=== PATIENT | female | born 1960 | race Caucasian/White ===

== ENCOUNTER → 2017-03-20 | Outpatient (CLI) | payer BC ==
--- NOTE | 2017-03-20 08:14 | US ---
EXAMINATION TYPE: US liver DATE OF EXAM: 03/20/2017 COMPARISON: NONE CLINICAL HISTORY: R74.8 Elevated liver enzymes. no symptoms EXAM MEASUREMENTS: Liver Length: 15.0 cm Gallbladder Wall: 0.1 cm CBD: 0.5 cm Right Kidney: 9.3 x 5.0 x 4.2 cm Pancreas: tail obscured by bowel gas, otherwise wnl Liver: There is 10 x 8 x 8 mm oval hyperechoic focus right hepatic dome too small to further characte juan daniel. Suspect small hemangioma. Gallbladder: wnl Evidence for sonographic Mondragon's sign: no CBD: wnl Right Kidney: wnl IMPRESSION: No worrisome intrahepatic mass or intrahepatic ductal dilatation is seen. Nonspecific 1 c m hyperechoic focus right hepatic dome favors small hemangioma, consider ultrasound follow-up in 6-12 months time to ensure stability in size.
== END | disposition home or self-care (01) ==
LOC: RADUSWWP 07:32
PROVIDERS: ATTEND Family Medicine
DX: R93.2 Abnormal findings on diagnostic imaging of liver and biliary tract (principal); R74.8 Abnormal levels of other serum enzymes
CPT/HCPCS: 76705

== ENCOUNTER 2017-04-11 03:01 | Emergency (ER) | payer BC ==
[2017-04-11 03:26] VITALS: TEMP 97.7
[2017-04-11] MEDS ORDERED: ALBUTEROL NEBULIZED 2.5 MG/3 ML INHALATION STA ×2 (03:32→05:20)
[2017-04-11] MEDS ORDERED: predniSONE 20 MG TAB PO STA (03:32)
[2017-04-11 04:08] LABS: Basophils % (A) 1 %; CH 31.4; Eosinophils # (A) 0.6 k/uL (0-0.7); Eosinophils % (A) 8 %; HCT 40.5 % (34.0-46.0); HDW 2.33; HGB 14.4 gm/dL (11.4-16.0); Luc # (Auto) 0.22; Luc % (Auto) 3; Lymphocytes # (A) 1.7 k/uL (1.0-4.8); Lymphocytes % (A) 21 %; MCHC 35.5 g/dL (31.0-37.0); MCV 92.8 fL (80.0-100.0); Mean Platelet Volume 7.5; Monocytes # (A) 0.6 k/uL (0-1.0); Monocytes % (A) 7 %; Neutrophils # (A) 4.9 k/uL (1.3-7.7); Neutrophils % (A) 61 %; RBC 4.36 m/uL (3.80-5.40); RDW 13.9 % (11.5-15.5); WBC (Perox) 8.26
[2017-04-11 04:32] LABS: ALT 31 U/L (9-52); AST 23 U/L (14-36); Alkaline Phosphatase 96 U/L (38-126); Anion Gap 12 mmol/L; Blood Urea Nitrogen 12 mg/dL (7-17); Calcium 9.9 mg/dL (8.4-10.2); Carbon Dioxide 24 mmol/L (22-30); Chloride 99 mmol/L (98-107); Glucose 101 mg/dL (74-99); Magnesium 1.8 mg/dL (1.6-2.3); Non-African American GFR(MDRD) >60 (>60 ml/min/1.73 sqM); Potassium 4.4 mmol/L (3.5-5.1); Sodium 135 mmol/L (137-145); Total Bilirubin 0.2 mg/dL (0.2-1.3); Total Protein 6.9 g/dL (6.3-8.2)
--- NOTE | 2017-04-11 04:38 | XR ---
EXAM: XR Chest, 2 Views CLINICAL HISTORY: Reason: difficulty breathing TECHNIQUE: Frontal and lateral views of the chest. COMPARISON: No relevant prior studies available. FINDINGS: Lungs: Evidence of COPD with chronic interstitial lung changes. Minimal peribronchial cuffing is suspected, which can be seen in pulmonary edema versus inflammatory airways disease. Pleural space: Unremarkable. No pneumothorax. No evidence of large pleural effusion. Heart: Unremarkable. No cardiomegaly. Mediastinum: Unremarkable. Bones/joints: Degenerative changes involving the osseous structures. Osteopenia suggested. IMPRESSION: 1. Evidence of COPD with chronic interstitial lung changes. 2. Minimal peribronchial cuffing is suspected, which can be seen in pulmonary edema versus inflammatory airways disease. Correlate clinically.
[2017-04-11] MEDS ORDERED: RX INFO: IV CONTRAST WAS GIVEN 1 EACH MISC MISCELLANE PRN (05:20)
--- NOTE | 2017-04-11 07:01 | CT ---
EXAM: CT Angiography Chest With Intravenous Contrast CLINICAL HISTORY: Asthma with elevated d-dimer. TECHNIQUE: Axial computed tomographic angiography images of the chest with intravenous contrast using pulmonary embolism protocol. DLP is 211.80 mGy-cm. This CT exam was performed using one or more of the following dose reduction techniques: automated exposure control, adjustment of the mA and/or kV according to patient size, and/or use of iterative reconstruction technique. MIP reconstructed images were created and reviewed. COMPARISON: No relevant prior studies available. FINDINGS: Pulmonary arteries: Unremarkable. No pulmonary embolism. Aorta: No acute findings. No thoracic aortic aneurysm. Lungs: Mild bronchiectasis is suggested. Mild bronchial wall thickening may also be present, which may represent inflammatory airways disease. Tiny nodular opacities are seen in the medial left upper lobe and within the right middle lobe somewhat arranged in a tree-in-bud configuration raising concern for infectious versus inflammatory small airways disease. Focal area of ground-glass opacity seen in the periphery of the right upper lobe concerning for early pneumonia. Mild emphysematous changes are suggested. Dependent atelectasis involving both lower lobes. Pleural space: Unremarkable. No significant effusion. No pneumothorax. Heart: Unremarkable. No cardiomegaly. No significant pericardial effusion. No evidence of RV dysfunction. Bones/joints: No acute fracture. No dislocation. Soft tissues: Unremarkable. Lymph nodes: Mildly prominent mediastinal and bilateral hilar lymph nodes are seen, which are likely reactive. IMPRESSION: 1. Mild bronchiectasis. Mild bronchial wall thickening, which may represent inflammatory airways disease. 2. Tiny nodular opacities are seen in the medial left upper lobe and within the right middle lobe somewhat arranged in a tree-in-bud configuration raising concern for infectious versus inflammatory small airways disease. Attention on short-term interval follow-up CT of the chest is recommended after treatment to assure resolution. 3. Focal area of ground-glass opacity seen in the periphery of the right upper lobe concerning for early pneumonia. 4. No evidence of PE.
[2017-04-11] MEDS ORDERED: AZITHROMYCIN 500 MG TAB PO STA (07:21)
--- NOTE | 2017-04-11 07:22 | ED ---
SOB HPI - General Chief Complaint: Shortness of Breath Stated Complaint: SOB Time Seen by Provider: 04/11/17 03:20 Source: patient, family Mode of arrival: ambulatory Limitations: no limitations - History of Present Illness Initial Comments: This patient is a 56-year-old woman who comes in to be evaluated for shortness of breath that is been getting worse over about the past 1 week. The patient notes that she had been started on Lipitor and thought that it might be related to that so she stopped the medication but wasn't feeling much better. On further questioning reveals that the patient had developed some sinus congestion as well, and that she is having nonproductive cough. In addition patient has been feeling some pressure on her chest for about the past week as well. She denies anginal type symptoms, including no diaphoresis, nausea or vomiting, lightheadedness, palpitations or syncope. MD Complaint: shortness of breath, cough, chest pain Onset/Timin -: week(s) Severity: mild Quality: other (Pressure) Consistency: constant Improves With: nothing Worsens With: nothing Known History Of: COPD Context: recent URI Associated Symptoms: chest pain, cough - Related Data Previous Rx's Medication Instructions Recorded Albuterol Inhaler [Ventolin Hfa 1 - 2 puff INHALATION Q6HR PRN #1 04/11/17 Inhaler] inhaler Azithromycin [Zithromax Z-pack] 250 mg PO DIRECTED #6 tab 04/11/17 predniSONE 60 mg PO DAILY #30 tab 04/11/17 Allergies Allergy/AdvReac Type Severity Reaction Status Date / Time No Known Allergies Allergy Verified 04/11/17 08:16 Review of Systems ROS Statement: Those systems with pertinent positive or pertinent negative responses have been documented in the HPI. ROS Other: All systems not noted in ROS Statement are negative. Constitutional: Denies: fever, chills, weakness ENT: Reports: congestion Respiratory: Reports: as per HPI, cough, dyspnea. Denies: hemoptysis Cardiovascular: Reports: as per HPI, chest pain. Denies: palpitations, edema, syncope Gastrointestinal: Denies: abdominal pain, vomiting, diarrhea, melena, hematochezia Genitourinary: Denies: dysuria, hematuria Musculoskeletal: Denies: back pain Skin: Denies: rash Neurological: Denies: headache, weakness, numbness Past Medical History Past Medical History: Asthma, Hyperlipidemia, Hypertension History of Any Multi-Drug Resistant Organisms: None Reported Past Surgical History: No Surgical Hx Reported Past Psychological History: No Psychological Hx Reported Smoking Status: Current every day smoker Past Alcohol Use History: None Reported Past Drug Use History: None Reported General Exam Limitations: no limitations General appearance: alert, in no apparent distress Head exam: Present: atraumatic, normocephalic Eye exam: Present: normal appearance. Absent: scleral icterus, conjunctival injection ENT exam: Present: normal oropharynx Neck exam: Present: normal inspection, full ROM Respiratory exam: Present: wheezes. Absent: respiratory distress, rales, rhonchi, stridor, chest wall tenderness Cardiovascular Exam: Present: regular rate, normal rhythm, normal heart sounds. Absent: systolic murmur, diastolic murmur, rubs, gallop GI/Abdominal exam: Present: soft. Absent: distended, tenderness, guarding, rebound, mass Extremities exam: Present: normal inspection, normal capillary refill. Absent: pedal edema, calf tenderness Back exam: Present: normal inspection. Absent: CVA tenderness (R), CVA tenderness (L) Neurological exam: Present: alert Skin exam: Present: warm, dry, intact, normal color. Absent: rash Course Vital Signs 04/11/17 04/11/17 04/11/17 03:21 03:26 03:44 Temperature 97.7 F Pulse Rate 97 80 Respiratory 20 Rate Blood Pressure 169/89 O2 Sat by Pulse 89 L 94 L Oximetry 04/11/17 04/11/17 04/11/17 04:00 05:06 05:50 Temperature Pulse Rate 88 77 81 Respiratory 20 Rate Blood Pressure 133/73 O2 Sat by Pulse 93 L Oximetry 04/11/17 04/11/17 06:03 08:25 Temperature 97.7 F Pulse Rate 84 89 Respiratory 18 Rate Blood Pressure 133/77 O2 Sat by Pulse 90 L Oximetry Medical Decision Making - Medical Decision Making Patient is a 56-year-old woman who does have some wheezing and cough, consistent with COPD. She is feeling a little better following treatment here for that. On her workup she had a mild elevation of the d-dimer and therefore sent for CT that shows suspected early pneumonia. Patient started on antibiotics and offered admission here but she states she would try an outpatient course of antibiotics instead. Discussed appropriate follow-up and also return parameters. Patient is stable for outpatient course of antibiotics. - Lab Data Result diagrams: 04/11/17 03:43 04/11/17 03:43 Lab Results 04/11/17 04/11/17 04/11/17 Range/Units 03:43 03:43 03:43 WBC 8.0 (3.8-10.6) k/uL RBC 4.36 (3.80-5.40) m/uL Hgb 14.4 (11.4-16.0) gm/dL Hct 40.5 (34.0-46.0) % MCV 92.8 (80.0-100.0) fL MCH 33.0 (25.0-35.0) pg MCHC 35.5 (31.0-37.0) g/dL RDW 13.9 (11.5-15.5) % Plt Count 276 (150-450) k/uL Neutrophils % 61 % Lymphocytes % 21 % Monocytes % 7 % Eosinophils % 8 % Basophils % 1 % Neutrophils # 4.9 (1.3-7.7) k/uL Lymphocytes # 1.7 (1.0-4.8) k/uL Monocytes # 0.6 (0-1.0) k/uL Eosinophils # 0.6 (0-0.7) k/uL Basophils # 0.0 (0-0.2) k/uL D-Dimer 0.65 H (<0.60) mg/L FEU Sodium 135 L (137-145) mmol/L Potassium 4.4 (3.5-5.1) mmol/L Chloride 99 (98-107) mmol/L Carbon Dioxide 24 (22-30) mmol/L Anion Gap 12 mmol/L BUN 12 (7-17) mg/dL Creatinine 0.70 (0.52-1.04) mg/dL Est GFR (MDRD) Af Amer >60 (>60 ml/min/1.73 sqM) Est GFR (MDRD) Non-Af >60 (>60 ml/min/1.73 sqM) Glucose 101 H (74-99) mg/dL Calcium 9.9 (8.4-10.2) mg/dL Magnesium 1.8 (1.6-2.3) mg/dL Total Bilirubin 0.2 (0.2-1.3) mg/dL AST 23 (14-36) U/L ALT 31 (9-52) U/L Alkaline Phosphatase 96 (38-126) U/L Troponin I (0.000-0.034) ng/mL NT-Pro-B Natriuret Pep pg/mL Total Protein 6.9 (6.3-8.2) g/dL Albumin 4.2 (3.5-5.0) g/dL 04/11/17 04/11/17 Range/Units 03:43 03:43 WBC (3.8-10.6) k/uL RBC (3.80-5.40) m/uL Hgb (11.4-16.0) gm/dL Hct (34.0-46.0) % MCV (80.0-100.0) fL MCH (25.0-35.0) pg MCHC (31.0-37.0) g/dL RDW (11.5-15.5) % Plt Count (150-450) k/uL Neutrophils % % Lymphocytes % % Monocytes % % Eosinophils % % Basophils % % Neutrophils # (1.3-7.7) k/uL Lymphocytes # (1.0-4.8) k/uL Monocytes # (0-1.0) k/uL Eosinophils # (0-0.7) k/uL Basophils # (0-0.2) k/uL D-Dimer (<0.60) mg/L FEU Sodium (137-145) mmol/L Potassium (3.5-5.1) mmol/L Chloride (98-107) mmol/L Carbon Dioxide (22-30) mmol/L Anion Gap mmol/L BUN (7-17) mg/dL Creatinine (0.52-1.04) mg/dL Est GFR (MDRD) Af Amer (>60 ml/min/1.73 sqM) Est GFR (MDRD) Non-Af (>60 ml/min/1.73 sqM) Glucose (74-99) mg/dL Calcium (8.4-10.2) mg/dL Magnesium (1.6-2.3) mg/dL Total Bilirubin (0.2-1.3) mg/dL AST (14-36) U/L ALT (9-52) U/L Alkaline Phosphatase (38-126) U/L Troponin I <0.012 (0.000-0.034) ng/mL NT-Pro-B Natriuret Pep 42 pg/mL Total Protein (6.3-8.2) g/dL Albumin (3.5-5.0) g/dL - EKG Data -: EKG Interpreted by Me EKG shows normal: sinus rhythm, axis (Normal), intervals (Normal), ST-T waves ( Normal) Rate: normal (Rate 89 bpm) Disposition Clinical Impression: COPD exacerbation, Pneumonia Disposition: HOME SELF-CARE Condition: Fair Instructions: COPD (Chronic Obstructive Pulmonary Disease) (ED) Prescriptions: Albuterol Inhaler [Ventolin Hfa Inhaler] 1 - 2 puff INHALATION Q6HR PRN #1 inhaler PRN Reason: Wheezing Azithromycin [Zithromax Z-pack] 250 mg PO DIRECTED #6 tab predniSONE 60 mg PO DAILY #30 tab Referrals: Guevara Bradley MD [Primary Care Provider] - 1-2 days
[2017-04-11 08:26] VITALS: BP 133/77; PULSE 89; RESP 18
--- NOTE | 2017-04-15 08:23 | CDI ---
Documentation Clarification OP Dear Jose Coelho Please do addendum to ED report for missing HPI and Physical examination. Thank you, Lauren Lopez Dials Supervisor If you have any questions, please contact Laborer Operator at [phone] [facility]
== END 2017-04-11 08:26 | disposition home or self-care (01) ==
LOC: EC 03:01
DX: J44.1 Chronic obstructive pulmonary disease with (acute) exacerbation (principal); J18.9 Pneumonia, unspecified organism; J45.909 Unspecified asthma, uncomplicated; E78.5 Hyperlipidemia, unspecified; F17.200 Nicotine dependence, unspecified, uncomplicated
CPT/HCPCS: 99285; 96365; 36415; 94640 ×2; 93005; 85379; 83880; 80053; 83735; 84484; 85025; 71020; 71275; Q9967; J0696; J7512

== ENCOUNTER → 2017-07-16 | Outpatient (CLI) | payer BC ==
--- NOTE | 2017-07-16 08:51 | CT ---
EXAMINATION TYPE: CT chest wo con DATE OF EXAM: 07/16/2017 COMPARISON: 04/11/2017 HISTORY: Solitary pulmonary nodule CT DLP: 463 mGycm. Automated Exposure Control for Dose Reduction was Utilized. TECHNIQUE: CT scan of the thorax is performed without IV contrast. FINDINGS: LUNGS: The previously seen tree-in-bud opacity within the left upper lobe and right middle lobe has e ntirely resolved from the prior. The previously seen bronchiectasis is less conspicuous and there is no peribronchial cuffing. There is also near complete resolution of previously seen groundglass opaci ty of the periphery of the right upper lobe with a residual 2 mm nodule on series 4 image 30. There i s an unchanged 5 mm solid pulmonary nodule within the right lower lobe on series 4 image 41 as well a s a subsolid 3 mm pulmonary nodule within the lingula on series 4 image 40, a subsolid 3 mm pulmonary nodule on series 4 image 27, and a subsolid 4 mm pulmonary nodule on series 4 image 36. There is valerie kground mild centrilobular emphysematous changes. There is no pleural effusion or pneumothorax seen. The tracheobronchial tree is patent. MEDIASTINUM: Lack of IV contrast is noted to limit evaluation for mediastinal and especially hilar ad enopathy. There are no definitive greater than 1 cm hilar or mediastinal lymph nodes. No cardiomega ly or pericardial effusion is seen. Moderate coronary artery calcifications are seen. OTHER: Small hiatal hernia is incidentally noted. There is mild dextroscoliotic curvature of the thor acic spine. Multilevel mild degenerative changes of the thoracic spine are noted. IMPRESSION: 1. Multiple bilateral subsolid and solid pulmonary nodules. Per the Fleischner Society criteria given their multiplicity, size, and subsolid composition follow-up CT in 3-6 months is recommended. If unc hanged CT should be considered at 2 and 4 years. 2. Near complete resolution the previously seen groundglass right upper lobe opacity and complete res olution of the previously seen left-sided tree-in-bud opacity. 3. Small hiatal hernia. 4. Moderate coronary artery calcifications, marker for coronary artery disease.
== END | disposition home or self-care (01) ==
LOC: RADCTMAIN 07:56
PROVIDERS: ATTEND Internal Medicine Sleep Medicine
DX: R91.8 Other nonspecific abnormal finding of lung field (principal); I25.10 Atherosclerotic heart disease of native coronary artery without angina pectoris
CPT/HCPCS: 71250

== ENCOUNTER → 2018-01-24 | Outpatient (CLI) | payer BC ==
--- NOTE | 2018-01-24 10:24 | CT ---
EXAMINATION TYPE: CT chest wo con DATE OF EXAM: 01/24/2018 COMPARISON: 07/16/2017 HISTORY: Follow up nodule CT DLP: 417 mGycm. Automated Exposure Control for Dose Reduction was Utilized. TECHNIQUE: CT scan of the thorax is performed without IV contrast. FINDINGS: LUNGS: There is a new tree-in-bud opacity of the medial anterior right upper lobe on series 4 image 1 5. The previously seen 2 mm nodule within the right upper lobe anteriorly is barely visualized and no w appears as linear scarring. This is seen on series 4 image 31. Right lower lobe 4 to 5 mm solid pul monary nodule on series 4 image 42 appears unchanged given differences in slice selection. Linear annette gular 2 mm pulmonary nodule on image 40 is similar to the prior. There is stability of the 4 mm pulmo nary nodule that is subsequent on series 4 image 36 in the left lower lobe in the previously seen lef t apical pulmonary nodules barely visible on image 27 measuring 3 mm. This may be attributable to dif ferences in slice selection. There is a retrospectively unchanged 3 mm pulmonary nodule that is solid on series 4 image 33 medially within the right lower lobe. No new pulmonary nodules identified. Minimal bibasilar subsegmental dependent atelectasis is present. There is no pleural effusion or pneu mothorax seen. The tracheobronchial tree is patent. MEDIASTINUM: Lack of IV contrast is noted to limit evaluation for mediastinal and especially hilar ad enopathy. There are no definitive greater than 1 cm hilar or mediastinal lymph nodes. No cardiomega ly or pericardial effusion is seen. Again there are moderate coronary artery calcifications, marker o f coronary artery disease. Small hiatal hernia is also again appreciated. OTHER: Mild multilevel degenerative changes of the thoracic spine are noted. IMPRESSION: 1. New left apical tree-in-bud opacity typically related to infectious or inflammatory small airway d isease. 2. Stability of the multiple bilateral pulmonary nodules. Follow-up CT could be performed in one year to establish long-term stability.
== END | disposition home or self-care (01) ==
LOC: RADCTMAIN 08:56
PROVIDERS: ATTEND Internal Medicine Sleep Medicine
DX: R91.8 Other nonspecific abnormal finding of lung field (principal)
CPT/HCPCS: 71250

== ENCOUNTER 2018-02-04 07:30 | Day surgery (SDC) | payer BC ==
[2018-02-03 10:00] VITALS: BMI 27.4
[~2018-02-04 07:30] MED LIST: LACTATED RINGERS 1,000 ML IV SCH; LIDOCAINE 1% 20 ML VIAL (10MG/ML) FOR IV START INTRADERMA PRN; MIDAZOLAM 2 MG/2 ML VIAL IV PRN
[2018-02-04 07:54] VITALS: TEMP 98.3
[2018-02-04] MEDS ORDERED: fentaNYL (PF) 50 MCG/ML 2 ML AMP ONE (08:40)
[2018-02-04] MEDS ORDERED: MIDAZOLAM 2 MG/2 ML VIAL ONE (08:40)
[2018-02-04] MEDS ORDERED: KETAMINE 10 MG/ML 20 ML VIAL ONE (08:40)
[2018-02-04] MEDS ORDERED: PROPOFOL 10 MG/ML 20 ML VIAL IV ONE (08:40)
[2018-02-04] MEDS ORDERED: LIDOCAINE 1% INJ 10MG/ML (20 ML MDV) ONE (08:40)
[2018-02-04] MEDS ORDERED: GLYCOPYRROLATE 0.2 MG/ML 2 ML VIAL ONE (08:40)
[2018-02-04] MEDS ORDERED: LIDOCAINE 2% INJ 20 MG/ML INTRATRACH ONE (09:03)
[2018-02-04 09:53] VITALS: BP 127/78; PULSE 72
--- NOTE | 2018-02-04 09:56 | P.PCN ---
Date of Procedure: 02/04/18 Preoperative Diagnosis: Recurrent pneumonia, cough shortness of breath Postoperative Diagnosis: As above Procedure(s) Performed: #1 bronchoscopy, 2 bronchoalveolar lavage of left upper lobe left lingula lobe and right lower lobe Surgeon: Jewel Ali Condition: stable Disposition: same day Indications for Procedure: As above Operative Findings: As below Description of Procedure: Patient prepared and draped in a usual fashion informed consent obtained from the patient fiberoptic bronchoscope was passed through the right nares the vocal cords were normal structure and function tip of the scope was passed beyond the vocal cords into the trachea which was normal in appearance right upper lobe right middle lobe and right lower lobe were inspected BAL was performed from the right lower lobe tolerated very well tip of the scope was taken on the left side more diffuse edema or erythema in and pearly cadet mucous plugs were present on the left side the mucosa was inflamed and easy to bleed and patch, BAL was performed from the left upper lobe as well as lingula lobe patient tolerated the procedure well no complication noted pulmonary toilet and suctioning cleaning of the left lung was performed afterwards patient tolerated the procedure well no complication noted
== END 2018-02-04 10:10 | disposition home or self-care (01) ==
LOC: ORWHC2ENDO 07:30
PROVIDERS: ATTEND Internal Medicine Sleep Medicine
DX: J18.9 Pneumonia, unspecified organism (principal); R91.8 Other nonspecific abnormal finding of lung field; I10 Essential (primary) hypertension; J45.909 Unspecified asthma, uncomplicated; Z87.891 Personal history of nicotine dependence
CPT/HCPCS: 87798 ×3; 87496; 87498; 87529; 88108; 88305; 87252; 87502; 87634; 87070; 87205; 87116; 87102; 87206; 31624; J2001 ×2; J2250; J3010; J2704; 31645; 87541

== ENCOUNTER → 2018-08-01 | Outpatient (CLI) | payer OTHER ==
--- NOTE | 2018-08-01 09:09 | MR ---
EXAMINATION TYPE: MR lumbar spine wo con DATE OF EXAM: 08/01/2018 COMPARISON: HISTORY: Intervertebral disc degeneration, lumbar CONTRAST: 0 mL intravenous . TECHNIQUE: Multiplanar, multisequence images of the lumbar spine were acquired. FINDINGS: L5-S1: No significant disc bulge or disc herniation. No spinal canal stenosis. No foraminal stenosi s. Mild facet hypertrophy is present. Disc desiccation is present. L4-L5: No significant disc bulge or disc herniation. No spinal canal stenosis. No foraminal stenosi s. There is moderate left and mild right foraminal narrowing. Correlate with left L5 radicular sympto ms. Disc desiccation is present. L3-L4: Mild disc bulging is anterior thecal sac flattening. No AP spinal canal stenosis is present. There is moderate to severe right foraminal stenosis. Some contact with disc bulging with the exiting nerve root on the right may be present. Correlate with right L4 radicular symptoms. Disc desiccation is present. L2-L3: No significant disc bulge or disc herniation. No spinal canal stenosis. No foraminal stenosi s. Disc desiccation is present. L1-L2: No significant disc bulge or disc herniation. No spinal canal stenosis. No foraminal stenosi s. Neural foramen are patent.. T12-L1: No significant disc bulge or disc herniation. No spinal canal stenosis. No foraminal stenos is. IMPRESSION: 1. Mild disc bulging contributing to moderate to severe foraminal stenosis in the lower lumbar spine. Correlate specifically for left L5 and right L4 radicular symptoms.
== END | disposition home or self-care (01) ==
LOC: RADMRIMAIN 07:33
PROVIDERS: ATTEND Internal Medicine Rheumatology
DX: M48.061 Spinal stenosis, lumbar region without neurogenic claudication (principal); M51.26 Other intervertebral disc displacement, lumbar region
CPT/HCPCS: 72148

== ENCOUNTER 2018-10-03 20:28 | Emergency (ER) | payer BC, OTHER ==
[2018-10-03] MEDS ORDERED: IPRATROPIUM-ALBUTEROL 3 ML NEB INHALATION STA (20:54)
[2018-10-03] MEDS ORDERED: MORPHINE SULFATE 4 MG/ML SYRINGE IM STA (20:55)
--- NOTE | 2018-10-03 21:17 | XR ---
EXAMINATION TYPE: XR chest 2V DATE OF EXAM: 10/03/2018 COMPARISON: 04/11/2017 HISTORY: Left-sided chest pain TECHNIQUE: Frontal and lateral views of the chest are obtained. FINDINGS: Heart and mediastinum are normal. Lungs are clear of infiltrate. There is no pleural effus ion. There are no hilar masses. Bony thorax is intact. IMPRESSION: No active cardiopulmonary disease. Normal heart. No change.
--- NOTE | 2018-10-03 21:18 | XR ---
EXAMINATION TYPE: XR ribs LT DATE OF EXAM: 10/03/2018 COMPARISON: NONE HISTORY: Left rib pain TECHNIQUE: 4 views FINDINGS: The left ribs appear intact. I see no pleural effusion or pneumothorax. Left lung is clear of infiltrate. IMPRESSION: Negative left rib exam.
--- NOTE | 2018-10-03 21:47 | ED ---
General Adult HPI - General Source: patient, RN notes reviewed Mode of arrival: ambulatory Limitations: no limitations <Ricky Moses P - Last Filed: 10/03/18 22:28> <Ngoc Ingram P - Last Filed: 10/04/18 06:37> - General Chief complaint: Back Pain/Injury Stated complaint: Back Pain Time Seen by Provider: 10/03/18 20:38 - History of Present Illness Initial comments: 58-year-old female presents to the emergency department for a chief complaint of left sided back pain. Patient states she has had a cough for the past week. Patient states this is productive in nature. Patient states yesterday she coughed and felt a pop in her ribs. Patient states it has been very painful since that time. Patient states that aggravating factors include movement. States alleviating factors include laying down still. She denies any shortness of breath. Patient states she often has a cough due to history of emphysema. She states this cold seems to be improving. Denies fevers or chills. Patient has no other complaints at this time including shortness of breath, chest pain, abdominal pain, nausea or vomiting, headache, or visual changes. (Ricky Moses) - Related Data Home Medications Medication Instructions Recorded Confirmed Albuterol Inhaler [Ventolin Hfa 2 puff INHALATION RT-QID PRN 02/03/18 10/03/18 Inhaler] Folic Acid 1 mg PO DAILY 02/03/18 10/03/18 Gabapentin [Neurontin] 400 mg PO TID PRN 02/03/18 10/03/18 Lisinopril [Zestril] 10 mg PO DAILY 02/03/18 10/03/18 Methotrexate Sodium [Methotrexate] 25 mg PO MO 10/03/18 10/03/18 Previous Rx's Medication Instructions Recorded Azithromycin [Zithromax Z-pack] 250 mg PO DIRECTED #6 tab 10/03/18 HYDROcodone/APAP 5-325MG [[place] 1 tab PO Q6HR PRN #10 tab 10/03/18 5-325] Lidocaine 5% Patch [Lidoderm 5% 1 patch TOPICAL DAILY #3 patch 10/03/18 Patch] predniSONE 50 mg PO DAILY #5 tablet 10/03/18 Allergies Allergy/AdvReac Type Severity Reaction Status Date / Time No Known Allergies Allergy Verified 10/03/18 21:29 Review of Systems ROS Other: All systems not noted in ROS Statement are negative. <Ricky Moses P - Last Filed: 10/03/18 22:28> ROS Other: All systems not noted in ROS Statement are negative. <Ngoc Ingram P - Last Filed: 10/04/18 06:37> ROS Statement: Those systems with pertinent positive or pertinent negative responses have been documented in the HPI. Past Medical History Past Medical History: Asthma, COPD, Hyperlipidemia, Hypertension, Pneumonia, Rheumatoid Arthritis (RA) History of Any Multi-Drug Resistant Organisms: None Reported Past Surgical History: Section, Tonsillectomy Past Anesthesia/Blood Transfusion Reactions: No Reported Reaction Past Psychological History: No Psychological Hx Reported Smoking Status: Former smoker Past Alcohol Use History: Occasional Past Drug Use History: None Reported - Past Family History Mother Family Medical History: No Reported History <Ricky Moses P - Last Filed: 10/03/18 22:28> General Exam Limitations: no limitations General appearance: alert, in no apparent distress Head exam: Present: atraumatic, normocephalic, normal inspection Eye exam: Present: normal appearance, PERRL, EOMI. Absent: scleral icterus, conjunctival injection, periorbital swelling ENT exam: Present: normal exam, mucous membranes moist Neck exam: Present: normal inspection, full ROM. Absent: tenderness, meningismus, lymphadenopathy Respiratory exam: Present: wheezes (minimal wheezing noted), chest wall tenderness (left sided posterior tenderness around T10-11). Absent: respiratory distress, rales, rhonchi, stridor Cardiovascular Exam: Present: regular rate, normal rhythm, normal heart sounds. Absent: systolic murmur, diastolic murmur, rubs, gallop, clicks GI/Abdominal exam: Present: soft, normal bowel sounds. Absent: distended, tenderness, guarding, rebound, rigid Neurological exam: Present: alert, oriented X3, CN II-XII intact Psychiatric exam: Present: normal affect, normal mood <Ricky Moses P - Last Filed: 10/03/18 22:28> Course Vital Signs 10/03/18 10/03/18 10/03/18 20:32 21:31 21:39 Temperature 98.2 F Pulse Rate 81 82 84 Respiratory 18 Rate Blood Pressure 142/75 O2 Sat by Pulse 97 Oximetry 10/03/18 22:30 Temperature 97.7 F Pulse Rate 78 Respiratory 20 Rate Blood Pressure 139/79 O2 Sat by Pulse 97 Oximetry Medical Decision Making <Ricky Moses P - Last Filed: 10/03/18 22:28> <Ngoc Ingram P - Last Filed: 10/04/18 06:37> - Medical Decision Making 58-year-old female presents to the emergency department for chief complaint of left-sided mid back pain 2 days. Patient states she felt a pop when she was coughing as she has had a productive cough for the past week. States this is worse with movement and better when resting. Patient denies any chest pain or abdominal pain. No neck pain. Vitals are stable, patient is 97% on room air. Pulse is 81 and respirations are 18. Patient is not in any respiratory distress. On exam patient does have some mild wheezing present. Patient does have reproducible pain noted to the mid left side of the back. Rib x-ray is negative. Chest x-ray shows no active cardiopulmonary disease. Patient likely has a contusion of the ribs or possible occult fracture. Patient was given breathing treatment and in sinus primary. She was given 4 mg of morphine for pain. Patient will be given a prescription for [place] as well as azithromycin and prednisone for her cough. She was also given a lidocaine patch as well as a prescription. She will follow up with primary care in 1-2 days or return here if she has any worsening symptoms. (Ricky Moses) I was available for consultation in the emergency department. The history and physical exam were done by the midlevel provider. I was consulted for this patient's care. I reviewed the case with the midlevel provider and based on their presentation of the patient, I agree with the assessment, medical decision making and plan of care as documented. (Ngoc Ingram) Disposition Is patient prescribed a controlled substance at d/c from ED?: No Time of Disposition: 22:21 <Ricky Moses P - Last Filed: 10/03/18 22:28> <Ngoc Ingram P - Last Filed: 10/04/18 06:37> Clinical Impression: Rib pain on left side Disposition: HOME SELF-CARE Condition: Good Instructions (If sedation given, give patient instructions): Rib Fracture (ED) Additional Instructions: Please take [place] for pain. Please do not drive or operate machinery when taking [place]. Please use lidocaine patch. He may apply this for 12 hours and then take it off for 12 hours before applying another patch. Please take azithromycin as directed as well as prednisone. Continue to use your nebulizer at home. Follow-up with primary care in 1-2 days. Return to the emergency department if you have any worsening symptoms. Prescriptions: Lidocaine 5% Patch [Lidoderm 5% Patch] 1 patch TOPICAL DAILY #3 patch HYDROcodone/APAP 5-325MG [[place] 5-325] 1 tab PO Q6HR PRN #10 tab PRN Reason: Pain predniSONE 50 mg PO DAILY #5 tablet Azithromycin [Zithromax Z-pack] 250 mg PO DIRECTED #6 tab Referrals: Guevraa Bradley MD [Primary Care Provider] - 1-2 days
[2018-10-03] MEDS ORDERED: KETOROLAC 30 MG/ML 1 ML VIAL IM STA (22:01)
[2018-10-03] MEDS ORDERED: LIDOCAINE 5% PATCH TOPICAL STA (22:01)
[2018-10-03 22:31] VITALS: BP 139/79; PULSE 78; RESP 20; TEMP 97.7
== END 2018-10-03 22:31 | disposition home or self-care (01) ==
LOC: EC 20:28
DX: R07.81 Pleurodynia (principal); M54.9 Dorsalgia, unspecified; R05 Cough; J43.9 Emphysema, unspecified; I10 Essential (primary) hypertension; M06.9 Rheumatoid arthritis, unspecified; Z79.899 Other long term (current) drug therapy; Z87.891 Personal history of nicotine dependence
CPT/HCPCS: 94640; 71100; 71046; 99283; 96372 ×2; J2270; J1885

== ENCOUNTER → 2020-12-15 | Outpatient (CLI) | payer OTHER ==
--- NOTE | 2020-12-15 13:02 | CTL ---
EXAMINATION TYPE: CT Low Dose Lung DATE OF EXAM ORDERED: 12/15/2020 HISTORY: 60-year-old female Personal history of tobacco use. Lung cancer screening CT DLP: [address] CTDI: 2.22 mGy Automated exposure control for dose reduction was used. SCREENING VISIT: Baseline COMPARISON: 01/24/2018 TECHNIQUE: Low dose computed tomography scan was performed through the chest with coronal and sagitta l reconstructions. Additional coronal MIP reconstruction was generated. CT DIAGNOSTIC QUALITY: Satisfactory FINDINGS: Heart normal size without pericardial effusion. LAD coronary artery calcifications. Aorta normal caliber with conventional arch vessel branching anatomy. No thoracic lymphadenopathy by CT size criteria. Minimal biapical pleural parenchymal scarring. Uyhu-az-tvftpaat diffuse bronchial wall thickening. 5 mm peripheral right lower lobe pulmonary nodule, axial image 178 is unchanged. 4 mm medial right lower lobe pulmonary nodule, axial image 146 is unchanged. 4 mm left lower lobe pulmonary nodule, axial image 158 is unchanged. No new suspicious pulmonary nodules. Patchy and interstitial changes inferior lingula and medial basilar right middle lobe slightly increa sed. Small hiatal hernia. Visualized upper abdomen otherwise shows no gross abnormal. Bones: Dextroconvex curvature of the third thoracic spine. IMPRESSION: 1. LungRADS 2, benign. A few stable pulmonary nodules measuring up to 5 mm. 2. Mild to moderate diffuse bronchial wall thickening suggests bronchitis or chronic asthma. 3. Some interstitial and patchy changes medial basilar right middle lobe and inferior lingula as slig htly increased. This is nonspecific but may represent sequela of indolent MACI infection. CT LUNG RAD AND CT CHEST RECOMMENDATION: Lung-Rad 2 Benign Appearance or Behavior: Continue annual sc reening with LDCT in 12 months. Recommend smoking cessation.
== END | disposition home or self-care (01) ==
LOC: RADCTMAIN 09:02
PROVIDERS: ATTEND Internal Medicine Sleep Medicine
DX: Z12.2 Encounter for screening for malignant neoplasm of respiratory organs (principal); R91.8 Other nonspecific abnormal finding of lung field; Z87.891 Personal history of nicotine dependence
CPT/HCPCS: 71271

== ENCOUNTER → 2020-12-15 | Outpatient (CLI) | payer OTHER ==
--- NOTE | 2020-12-19 08:56 | MM ---
Reason for exam: screening (asymptomatic). Last mammogram was performed 11 years and 2 months ago. History: Patient is postmenopausal. Physical Findings: A clinical breast exam by your physician is recommended on an annual basis and results should be correlated with mammographic findings. MG Screening Mammo w CAD Bilateral CC and MLO view(s) were taken. Prior study comparison: September 30, 2009, bilateral digital screening mammogram. March 20, 2002, bilateral screening mammogram. There are scattered fibroglandular densities. Focal asymmetry right upper MLO view. This finding is changed when compared with previous exams. ASSESSMENT: Incomplete: need additional imaging evaluation, BI-RAD 0 RECOMMENDATION: Special view mammogram of the right breast. If lesion persists on supplemental views, image directed ultrasound is recommended. [facility] will attempt to contact patient to return for supplemental views and ultrasound if indicated.
== END | disposition home or self-care (01) ==
LOC: RADMAMWWP 09:24
PROVIDERS: ATTEND Family Medicine
DX: Z12.31 Encounter for screening mammogram for malignant neoplasm of breast (principal); Z78.0 Asymptomatic menopausal state
CPT/HCPCS: 77067

== ENCOUNTER → 2020-12-29 | Outpatient (CLI) | payer OTHER ==
--- NOTE | 2020-12-29 12:11 | MM ---
Reason for exam: additional evaluation requested from abnormal screening. Last mammogram was performed less than 1 month ago. History: Patient is postmenopausal. Physical Findings: Nurse did not find any significant physical abnormalities on exam. MG Work Up Mamm w CAD RT LM and spot compression MLO view(s) were taken of the right breast. Prior study comparison: December 15, 2020, bilateral MG screening mammo w CAD. September 30, 2009, bilateral digital screening mammogram. Right axillary tail density on MLO/true lateral is covered by mole marker for skin lesion. These results were verbally communicated with the patient and result sheet given to the patient on 12/29/20. ASSESSMENT: Benign, BI-RAD 2 RECOMMENDATION: Return to routine screening mammogram schedule for both breasts.
== END | disposition home or self-care (01) ==
LOC: RADMAMWWP 10:12
PROVIDERS: ATTEND Family Medicine
DX: R92.8 Other abnormal and inconclusive findings on diagnostic imaging of breast (principal); Z78.0 Asymptomatic menopausal state
CPT/HCPCS: 77065

== ENCOUNTER → 2022-05-02 | Outpatient (CLI) | payer OTHER ==
[2022-05-02 11:36] LABS: ABG Base Excess 1.9 mmol/L; ABG HCO3 27 mmol/L (21-25); ABG Oxygen Saturation 92.5 % (94-97); ABG PCO2 47 mmHg (35-45); ABG PH 7.37 (7.35-7.45); ABG PO2 64 mmHg (83-108); ABG TCO2 29 mmol/L (19-24); Allen Test Performed? Yes
== END | disposition home or self-care (01) ==
LOC: LABWHC1 10:57
PROVIDERS: ATTEND Internal Medicine Critical Care Medicine
DX: J44.9 Chronic obstructive pulmonary disease, unspecified (principal)
CPT/HCPCS: 36600; 82805

== ENCOUNTER → 2022-11-29 | Outpatient (CLI) | payer OTHER ==
--- NOTE | 2022-11-30 12:42 | CA ---
Transthoracic Echo Report Name: Katie Grant Age: 62 Gender: F : 1960 Exam Date: 11/29/2022 12:52 Exam Location: [facility] Ht (in): 66 Wt (lb): 220 Ordering Physician: Timothy Lew DO Attending/Referring Phys: [employer] Ivette Juan RDCS Procedure CPT: Indications: J96.11 respiratory failure Cardiac Hx: Technical Quality: Fair Contrast 1: Total Dose (mL): Contrast 2: Total Dose (mL): MEASUREMENTS (Male / Female) Normal Values 2D ECHO LV Diastolic Diameter PLAX 4.4 cm 4.2 - 5.9 / 3.9 - 5.3 cm LV Systolic Diameter PLAX 2.8 cm IVS Diastolic Thickness 1.2 cm 0.6 - 1.0 / 0.6 - 0.9 cm LVPW Diastolic Thickness 1.0 cm 0.6 - 1.0 / 0.6 - 0.9 cm LV Relative Wall Thickness 0.5 LVOT Diameter 1.7 cm LA Volume 40.2 cm??? 18 - 58 / 22 - 52 cm??? DOPPLER AV Peak Velocity 272.9 cm/s AV Peak Gradient 29.8 mmHg AV Mean Velocity 179.7 cm/s AV Mean Gradient 15.1 mmHg AV Velocity Time Integral 46.2 cm LVOT Peak Velocity 256.6 cm/s LVOT Peak Gradient 26.3 mmHg LVOT Velocity Time Integral 41.5 cm LVOT Stroke Volume 92.6 cm??? LVOT Stroke Volume Index 44.4 ml/m??? LVOT Cardiac Index 2359.5 cm???/min???m??? AV Area Cont Eq vti 2.0 cm??? AV Area Cont Eq pk 2.1 cm??? MV Area PHT 3.0 cm??? Mitral E Point Velocity 81.8 cm/s Mitral A Point Velocity 110.0 cm/s Mitral E to A Ratio 0.7 MV Deceleration Time 251.5 ms MV E' Velocity 10.5 cm/s Mitral E to MV E' Ratio 7.8 TR Peak Velocity 248.7 cm/s TR Peak Gradient 24.8 mmHg Right Ventricular Systolic Press 29.8 mmHg FINDINGS Left Ventricle Mildly increased left ventricular wall thickness. Left ventricular cavity size normal. Normal left ventricular systolic function with no obvious regional wall motion abnormalities. Left ventricular ejection fraction is estimated at 55-60 %. Right Ventricle Normal right ventricular size and function. Right ventricular systolic pressure within normal limits. Right Atrium Normal right atrial size. Left Atrium Normal left atrial size. Mitral Valve Structurally normal mitral valve. Mild mitral regurgitation. Aortic Valve Aortic valve not well visualized. Mild aortic stenosis with a peak gradient of 30 mmHg and a mean gradient of 15 mmHg. LVOT gradient noted with Peak gradient 26.3 mmHg and mean PG 15 mmHg. Tricuspid Valve Structurally normal tricuspid valve. Mild tricuspid regurgitation. Pulmonic Valve Structurally normal pulmonic valve. Mild pulmonic regurgitation. Pericardium No pericardial effusion. Aorta Normal size aortic root and proximal ascending aorta. CONCLUSIONS Normal LV systolic function Poorly visualized aortic valve. The aortic valve is calcified. Mild to moderate aortic regurgitation. The LVOT gradient at the peak of 25 mm jorge l Previewed by: Dr. Too Almonte MD (Electronically Signed) Final Date: 30 November 2022 12:41
== END | disposition home or self-care (01) ==
LOC: RADECHMAIN 12:44
PROVIDERS: ATTEND Internal Medicine Critical Care Medicine
DX: J96.11 Chronic respiratory failure with hypoxia (principal); I34.0 Nonrheumatic mitral (valve) insufficiency
CPT/HCPCS: 93306

== ENCOUNTER → 2023-02-11 | Outpatient (CLI) | payer OTHER ==
--- NOTE | 2023-02-11 09:31 | CTL ---
EXAMINATION TYPE: CT Low Dose Lung DATE OF EXAM ORDERED: 02/11/2023 HISTORY: 62-year-old female Z12.2, F17.210. Former smoker with 48 pack-year history. Lung cancer scre ening CT DLP: 139.[address] CTDI: 3.9 mGy Automated exposure control for dose reduction was used. SCREENING VISIT: Annual follow-up COMPARISON: 02/12/2022 TECHNIQUE: Low dose computed tomography scan was performed through the chest with coronal and sagitta l reconstructions. CT DIAGNOSTIC QUALITY: Satisfactory FINDINGS: The heart is normal size without pericardial effusion. Extensive LAD coronary artery calcifications a re present. Bore line ectasia ascending aorta 3.6 cm. Conventional arch vessel branching anatomy. Scattered nonenlarged mediastinal lymph nodes. No thoracic lymphadenopathy by CT size criteria. Strandy scarring and atelectasis in the lower lungs. Changes increased in the right middle lobe and i nferior lingula. Khzx-xy-vafinuos diffuse bronchial wall thickening. Moderate upper lung predominant centrilobular emp hysema. New 4 mm peripheral left midlung pulmonary nodule, axial image 112. Stable 5 mm peripheral right basilar pulmonary nodule, axial image 165. No consolidation or pleural effusion. There is a small hiatal hernia. Reverse S-shaped curvature upper thoracic spine. IMPRESSION: 1. LungRADS 2, benign. A couple stable pulmonary nodules measuring up to 5 mm. 2. COPD with mild to moderate emphysema. Some strandy scarring/atelectasis in the lower lungs slightl y increased in the interval. 3. CAD with extensive LAD coronary artery calcifications. CT LUNG RAD AND CT CHEST RECOMMENDATION: Lung-Rad 2 Benign Appearance or Behavior: Continue annual sc reening with LDCT in 12 months. S Modifier (other clinically significant findings): None
== END | disposition home or self-care (01) ==
LOC: RADCTMAIN 08:13
PROVIDERS: ATTEND Internal Medicine Critical Care Medicine
DX: Z12.2 Encounter for screening for malignant neoplasm of respiratory organs (principal); J43.2 Centrilobular emphysema; I25.10 Atherosclerotic heart disease of native coronary artery without angina pectoris; R91.8 Other nonspecific abnormal finding of lung field; F17.210 Nicotine dependence, cigarettes, uncomplicated
CPT/HCPCS: 71271

== ENCOUNTER 2023-05-24 07:29 | Day surgery (SDC) | payer MEDICARE, OTHER ==
[2023-05-22 14:44] VITALS: BMI 37.1
[~2023-05-24 07:29] MED LIST changes: +LIDOCAINE 1% (10MG/ML) FOR IV START INTRADERMA PRN; -LIDOCAINE 1% 20 ML VIAL (10MG/ML) FOR IV START INTRADERMA PRN; -MIDAZOLAM 2 MG/2 ML VIAL IV PRN
[2023-05-24 08:04] VITALS: TEMP 97.5
[2023-05-24] MEDS ORDERED: LIDOCAINE 1% INJ 10MG/ML (20 ML MDV) ONE (08:36)
[2023-05-24] MEDS ORDERED: PROPOFOL 10 MG/ML 20 ML VIAL IV ONE (08:36)
--- NOTE | 2023-05-24 09:08 | P.PCN ---
Date of Procedure: 05/24/23 Procedure(s) Performed: Brief history: Patient is a pleasant 62-year-old white female scheduled for an elective upper endoscopy as well as colonoscopy as a part of evaluation of GERD/change in bowel habits. She is on omeprazole 20 mg daily for 4 years with good relief in his symptoms. Procedure performed: Esophagogastroduodenoscopy with biopsy Colonoscopy with snare polypectomy. Preoperative diagnosis: GERD Change in bowel habits Anesthesia: MAC Procedure: After informed consent was obtained from the patient was brought into the endoscopy unit and IV sedation was administered by anesthesia under continuous monitoring. Initially upper endoscopy was done. The Olympus GF 160 video endoscope was inserted inserted into the mouth and esophagus intubated without any difficulty and was gradually advanced into the stomach and duodenum and carefully examined. The bulb and second part of the duodenum appeared normal. The scope was then withdrawn into the stomach adequately insufflated with air and upon careful examination the antrum had patchy areas of erythema consistent with gastritis and biopsies were done from this area. Mucosa of the body, cardia and fundus appeared normal. The scope was then withdrawn into the esophagus. Mall sliding type hiatal hernia noted. The GE junction was located at 40 cm to the incisors. It appeared regular with no erythema erosions or ulcerations. Rest of the esophagus appeared normal. Patient tolerated the procedure well. At this time the patient continued to remain sedation. Initial digital rectal examination was normal. Olympus CF 160 video colonoscope was then inserted into the rectum and gradually advanced to the cecum without any difficulty. Careful examination was performed as the scope was gradually being withdrawn. The prep was excellent. The cecum, 2 cm linear polyp that was removed by piecemeal snare polypectomy and complete polypectomy accomplished. In the transverse colon there was a 1 cm polyp removed by snare polypectomy. In the descending colon there was a 5 mm and 1.5 cm polyp removed by snare polypectomy. Rest of the descending colon, sigmoid colon and rectum appeared normal. Retroflexion was performed in the rectum and no lesions were noted. Patient tolerated the procedure well. Impression: 1. Upper endoscopy revealed mild antral gastritis and small hiatal hernia but no evidence of esophagitis or Garcia's esophagus 2. Colonoscopy revealed: a) 2 cm linear cecal polyp status post polypectomy b) 1 cm transverse colon polyp status post snare polypectomy c) 5 mm and 1.5 cm descending colon polyp status post polypectomy Recommendations: Findings of this examination were discussed with the patient as well as a family. She was advised to follow with the biopsy results. Deep omeprazole 20 mg daily and follow antireflux measures. If the biopsy reveals adenoma she can have a repeat colonoscopy in 3 years.
[2023-05-24 09:54] VITALS: BP 134/89; PULSE 78; RESP 18
== END 2023-05-24 09:51 | disposition home or self-care (01) ==
LOC: ORWHC2ENDO 07:29
PROVIDERS: ATTEND Internal Medicine Gastroenterology
DX: K29.50 Unspecified chronic gastritis without bleeding (principal); D12.0 Benign neoplasm of cecum; D12.3 Benign neoplasm of transverse colon; D12.4 Benign neoplasm of descending colon; K21.9 Gastro-esophageal reflux disease without esophagitis; R19.4 Change in bowel habit; K44.9 Diaphragmatic hernia without obstruction or gangrene; I10 Essential (primary) hypertension; E78.5 Hyperlipidemia, unspecified; J44.9 Chronic obstructive pulmonary disease, unspecified; E66.9 Obesity, unspecified; Z68.37 Body mass index [BMI] 37.0-37.9, adult; M06.9 Rheumatoid arthritis, unspecified; Z79.51 Long term (current) use of inhaled steroids; Z79.899 Other long term (current) drug therapy
CPT/HCPCS: 88305; 45385; 43239; J2001; J2704

== ENCOUNTER 2023-06-12 15:46 | Emergency (ER) | payer MEDICARE, OTHER ==
[2023-06-12 17:00] LABS: Basophils % (A) 0 %; Eosinophils % (A) 1 %; HCT 41.3 % (34.0-46.0); HGB 13.7 gm/dL (11.4-16.0); Lymphocytes # (A) 0.9 k/uL (1.0-4.8); Lymphocytes % (A) 18 %; MCHC 33.2 g/dL (31.0-37.0); MCV 87.3 fL (80.0-100.0); Monocytes # (A) 0.7 k/uL (0-1.0); Monocytes % (A) 15 %; Neutrophils # (A) 3.1 k/uL (1.3-7.7); Neutrophils % (A) 62 %; Platelet Count 201 k/uL (150-450); RBC 4.73 m/uL (3.80-5.40); RDW 12.9 % (11.5-15.5)
[2023-06-12 17:12] LABS: ALT 31 U/L (4-34); AST 30 U/L (14-36); African American GFR (CKD) 72 (>60 ml/min/1.73 sqM); Albumin 4.2 g/dL (3.5-5.0); Alkaline Phosphatase 79 U/L (38-126); Anion Gap 11 mmol/L; Blood Urea Nitrogen 19 mg/dL (7-17); Calcium 9.7 mg/dL (8.4-10.2); Carbon Dioxide 29 mmol/L (22-30); Chloride 94 mmol/L (98-107); Glucose 92 mg/dL (74-99); INR 0.9 (<1.2); Non-African American GFR(CKD) 62 (>60 ml/min/1.73 sqM); Partial Thromboplastin Time 25.6 sec (22.0-30.0); Potassium 4.6 mmol/L (3.5-5.1); Prothrombin Time 9.8 sec (10.0-12.5); Sodium 134 mmol/L (137-145); Total Bilirubin 0.3 mg/dL (0.2-1.3); Total Protein 6.9 g/dL (6.3-8.2)
[2023-06-12 17:19] LABS: NT-Pro-B-Type Natriuretic Pept 165 pg/mL
--- NOTE | 2023-06-12 17:39 | XR ---
EXAMINATION TYPE: XR chest 2V DATE OF EXAM: 06/12/2023 4:53 PM CLINICAL INDICATION:Female, 63 years old with history of difficulty breathing; [facility] COMPARISON: Chest radiographs from 10/03/2018 TECHNIQUE: XR chest 2V Frontal and lateral views of the chest. FINDINGS: Lungs/Pleura: There is flattening of the diaphragm with increased lucency of the lungs. No evidence o f pneumothorax, pleural effusion or focal consolidation. Pulmonary vascularity: Unremarkable. Heart/mediastinum: Cardiomediastinal silhouette is unremarkable. Musculoskeletal: No acute osseous pathology. IMPRESSION: 1. No acute cardiopulmonary disease process. 2. COPD changes.
--- NOTE | 2023-06-12 18:26 | ED ---
URI HPI - General Chief Complaint: Upper Respiratory Infection Stated Complaint: Low O2,Flu Symptoms Time Seen by Provider: 06/12/23 17:53 Source: patient, RN notes reviewed, old records reviewed, Caregiver Mode of arrival: ambulatory Limitations: no limitations - History of Present Illness Initial Comments: This is a 63-year-old female to the emergency department for evaluation he. Patient coming in for flulike symptoms not feeling well possible low oxygen levels at home. Patient has persistent shortness of breath here in the emergency room with persistent weakness does have increasing cough with positive known sick contacts. Patient has increasing cough congestion possible fevers chills but no chest pain. No significant nausea vomiting or diarrhea. MD Complaint: fever, cough, sore throat, nasal congestion -: days(s) Severity: moderate Severity scale (1-10): 4 Quality: sharp Consistency: intermittent Improves With: nothing Worsens With: nothing Context: sick contacts Associated Symptoms: fever, chills, myalgias Treatments Prior to Arrival: none - Related Data Home Medications Medication Instructions Recorded Confirmed Albuterol Inhaler [Ventolin Hfa 2 puff INHALATION QID 02/03/18 05/22/23 Inhaler] Albuterol Nebulized [Ventolin 2.5 mg INHALATION QID PRN 05/22/23 05/22/23 Nebulized] Atorvastatin [Lipitor] 20 mg PO HS 05/22/23 05/22/23 Budesonide/Formoterol Fumarate 2 puff INHALATION BID 05/22/23 05/22/23 [Symbicort 160-4.5 Mcg Inhaler] Cholecalciferol [Vitamin D3 (25 50 mcg PO DAILY 05/22/23 05/22/23 Mcg = 1000 Iu)] Gabapentin 300 mg PO TID 05/22/23 05/22/23 Hydroxychloroquine Sulfate 200 mg PO BID 05/22/23 05/22/23 Ipratropium-Albuterol Nebulize 3 ml INHALATION QID PRN 05/22/23 05/22/23 [Duoneb 0.5 mg-3 mg/3 ml Soln] Losartan [Cozaar] 50 mg PO QAM 05/22/23 05/22/23 Montelukast [Singulair] 10 mg PO QAM 05/22/23 05/22/23 buPROPion SR [Wellbutrin SR] 150 mg PO BID 05/22/23 05/22/23 hydroCHLOROthiazide 12.5 mg PO DAILY 05/22/23 05/22/23 Previous Rx's Medication Instructions Recorded dexAMETHasone [Decadron] 6 mg PO TID #14 tablet 06/12/23 Allergies Allergy/AdvReac Type Severity Reaction Status Date / Time No Known Allergies Allergy Verified 06/12/23 16:13 Review of Systems ROS Statement: Those systems with pertinent positive or pertinent negative responses have been documented in the HPI. ROS Other: All systems not noted in ROS Statement are negative. Past Medical History Past Medical History: Asthma, COPD, Hearing Disorder / Deafness, Hyperlipidemia, Hypertension, Pneumonia, Rheumatoid Arthritis (RA) Additional Past Medical History / Comment(s): Hard of hearing. History of Any Multi-Drug Resistant Organisms: None Reported Past Surgical History: Section, Tonsillectomy Past Anesthesia/Blood Transfusion Reactions: No Reported Reaction Past Psychological History: No Psychological Hx Reported Smoking Status: Former smoker Past Alcohol Use History: Occasional Past Drug Use History: None Reported - Past Family History Mother Family Medical History: No Reported History General Exam Limitations: no limitations General appearance: alert, in no apparent distress Head exam: Present: atraumatic, normocephalic, normal inspection Eye exam: Present: normal appearance, PERRL, EOMI. Absent: scleral icterus, conjunctival injection, periorbital swelling ENT exam: Present: normal exam, mucous membranes moist Neck exam: Present: normal inspection. Absent: tenderness, meningismus, lymphadenopathy Respiratory exam: Present: normal lung sounds bilaterally. Absent: respiratory distress, wheezes, rales, rhonchi, stridor Cardiovascular Exam: Present: regular rate, normal rhythm, normal heart sounds. Absent: systolic murmur, diastolic murmur, rubs, gallop, clicks GI/Abdominal exam: Present: soft, normal bowel sounds. Absent: distended, tenderness, guarding, rebound, rigid Extremities exam: Present: normal inspection, full ROM, normal capillary refill. Absent: tenderness, pedal edema, joint swelling, calf tenderness Back exam: Present: normal inspection Neurological exam: Present: alert, oriented X3, CN II-XII intact Psychiatric exam: Present: normal affect, normal mood Skin exam: Present: warm, dry, intact, normal color. Absent: rash Course Vital Signs 12/20/23 12/20/23 16:09 18:25 Temperature 99.3 F 97.5 F L Pulse Rate 84 78 Respiratory 17 20 Rate Blood Pressure 136/73 124/78 O2 Sat by Pulse 92 L 93 L Oximetry - Reevaluation(s) Reevaluation #1: Medical records reviewed Reevaluation #2: Patient symptoms are improving Reevaluation #3: Patient informed of results questions answered Reevaluation #4: Was pt. sent in by a medical professional or institution (, MAURICIO, SERVICE LINE LAYER, urgent care, hospital, or care home...) When possible be specific @ -no Did you speak to anyone other than the patient for history (EMS, parent, family, police, friend...)? What history was obtained from this source @ -no Did you review nursing and triage notes (agree or disagree)? Why? @ -agree Are old charts reviewed (outside hosp., previous admission, EMS record, old EKG, old radiological studies, urgent care reports/EKG's, care home records)? Report findings @ -yes Differential Diagnosis (chest pain, altered mental status, abdominal pain women, abdominal pain men, vaginal bleeding, weakness, fever, dyspnea, syncope, headache, dizziness, GI bleed, back pain, seizure, CVA, palpatations, mental health, musculoskeletal)? @ -prior EKG interpreted by me (3pts min.). @ -yes X-rays interpreted by me (1pt min.). @ -yes negative for acute disease CT interpreted by me (1pt min.). @ -no U/S interpreted by me (1pt. min.). @ -no What testing was considered but not performed or refused? (CT, X-rays, U/S, labs)? Why? @ -none What meds were considered but not given or refused? Why? @ -none Did you discuss the management of the patient with other professionals (professionals i.e. MAURICIO Adams, SERVICE LINE LAYER, lab, RT, psych nurse, manager social work, industrial electrician, teacher, surveillance dual rate officer, case hardener)? Give summary @ -no Was smoking cessation discussed for >3mins.? @ -no Was critical care preformed (if so, how long)? @ -no Were there social determinants of health that impacted care today? How? (Homelessness, low income, unemployed, alcoholism, drug addiction, transportation, low edu. Level, literacy, decrease access to med. care, [place] [facility], rehab)? @ -none Was there de-escalation of care discussed even if they declined (Discuss DNR or withdrawal of care, Hospice)? DNR status @ -no What co-morbidities impacted this encounter? (DM, HTN, Smoking, COPD, CAD, Cancer, CVA, ARF, Chemo, Hep., AIDS, mental health diagnosis, sleep apnea, morbid obesity)? @ -none Was patient admitted / discharged? Hospital course, mention meds given and route, prescriptions, significant lab abnormalities, going to OR and other pertinent info. @ - 63 female to the emergency department for evaluation. Poor historian coming in for evaluation regarding difficulty breathing. Patient is found a positive for coronavirus Patient is in no acute distress here in the ER feels well here in the electronic can be discharged home with discharge Undiagnosed new problem with uncertain prognosis? @ -no Drug Therapy requiring intensive monitoring for toxicity (Heparin, Nitro, Insul in, Cardizem)? @ -no Were any procedures done? @ -no Diagnosis/symptom? @ -Coronavirus weakness Acute, or Chronic, or Acute on Chronic? @ -Acute Uncomplicated (without systemic symptoms) or Complicated (systemic symptoms)? @ -Complicated Side effects of treatment? @ -no Exacerbation, Progression, or Severe Exacerbation? @ -exacerbation Poses a threat to life or bodily function? How? (Chest pain, USA, MS, pneumonia, PE, COPD, DKA, ARF, appy, cholecystitis, CVA, Diverticulitis, Homicidal, S uicidal, threat to staff... and all critical care pts) @ -yes significant coronavirus and outpatient Reevaluation #5: Differential Dyspnea: Coronary syndrome, arrhythmia, tamponade, asthma, COPD, pulmonary embolism, pneumonia, pneumothorax, pulmonary effusion, anaphylaxis, diabetic ketoacidosis, flailed chest, pulmonary contusion, diaphragmatic rupture, anemia, neuromuscular, this is not meant to be an all-inclusive list. Differential Weakness: Hypoglycemia, shock, sepsis, hyponatremia, anemia, infection, MS, ETOH, adverse medicine reaction, overdose, stroke, this is not meant to be an all-inclusive list. Medical Decision Making - Medical Decision Making 63 female to the emergency department for evaluation. Kalpana historian coming in for evaluation regarding difficulty breathing. Patient is in no acute distress here in the ER feels well here in the electronic can be discharged home - Lab Data Result diagrams: 06/12/23 16:21 06/12/23 16:21 Lab Results 06/12/23 06/12/23 06/12/23 Range/Units 16:21 16:21 16:21 WBC 5.0 (3.8-10.6) k/uL RBC 4.73 (3.80-5.40) m/uL Hgb 13.7 (11.4-16.0) gm/dL Hct 41.3 (34.0-46.0) % MCV 87.3 (80.0-100.0) fL MCH 29.0 (25.0-35.0) pg MCHC 33.2 (31.0-37.0) g/dL RDW 12.9 (11.5-15.5) % Plt Count 201 (150-450) k/uL MPV 8.0 Neutrophils % 62 % Lymphocytes % 18 % Monocytes % 15 % Eosinophils % 1 % Basophils % 0 % Neutrophils # 3.1 (1.3-7.7) k/uL Lymphocytes # 0.9 L (1.0-4.8) k/uL Monocytes # 0.7 (0-1.0) k/uL Eosinophils # 0.0 (0-0.7) k/uL Basophils # 0.0 (0-0.2) k/uL PT 9.8 L (10.0-12.5) sec INR 0.9 (<1.2) APTT 25.6 (22.0-30.0) sec Sodium 134 L (137-145) mmol/L Potassium 4.6 (3.5-5.1) mmol/L Chloride 94 L (98-107) mmol/L Carbon Dioxide 29 (22-30) mmol/L Anion Gap 11 mmol/L BUN 19 H (7-17) mg/dL Creatinine 0.97 (0.52-1.04) mg/dL Est GFR (CKD-EPI)AfAm 72 (>60 ml/min/1.73 sqM) Est GFR (CKD-EPI)NonAf 62 (>60 ml/min/1.73 sqM) Glucose 92 (74-99) mg/dL Calcium 9.7 (8.4-10.2) mg/dL Total Bilirubin 0.3 (0.2-1.3) mg/dL AST 30 (14-36) U/L ALT 31 (4-34) U/L Alkaline Phosphatase 79 (38-126) U/L Troponin I (0.000-0.034) ng/mL NT-Pro-B Natriuret Pep 165 pg/mL Total Protein 6.9 (6.3-8.2) g/dL Albumin 4.2 (3.5-5.0) g/dL Influenza Type A (PCR) (Not Detectd) Influenza Type B (PCR) (Not Detectd) RSV (PCR) (Not Detectd) SARS-CoV-2 (PCR) (Not Detectd) 06/12/23 06/12/23 Range/Units 16:21 16:21 WBC (3.8-10.6) k/uL RBC (3.80-5.40) m/uL Hgb (11.4-16.0) gm/dL Hct (34.0-46.0) % MCV (80.0-100.0) fL MCH (25.0-35.0) pg MCHC (31.0-37.0) g/dL RDW (11.5-15.5) % Plt Count (150-450) k/uL MPV Neutrophils % % Lymphocytes % % Monocytes % % Eosinophils % % Basophils % % Neutrophils # (1.3-7.7) k/uL Lymphocytes # (1.0-4.8) k/uL Monocytes # (0-1.0) k/uL Eosinophils # (0-0.7) k/uL Basophils # (0-0.2) k/uL PT (10.0-12.5) sec INR (<1.2) APTT (22.0-30.0) sec Sodium (137-145) mmol/L Potassium (3.5-5.1) mmol/L Chloride (98-107) mmol/L Carbon Dioxide (22-30) mmol/L Anion Gap mmol/L BUN (7-17) mg/dL Creatinine (0.52-1.04) mg/dL Est GFR (CKD-EPI)AfAm (>60 ml/min/1.73 sqM) Est GFR (CKD-EPI)NonAf (>60 ml/min/1.73 sqM) Glucose (74-99) mg/dL Calcium (8.4-10.2) mg/dL Total Bilirubin (0.2-1.3) mg/dL AST (14-36) U/L ALT (4-34) U/L Alkaline Phosphatase (38-126) U/L Troponin I <0.012 (0.000-0.034) ng/mL NT-Pro-B Natriuret Pep pg/mL Total Protein (6.3-8.2) g/dL Albumin (3.5-5.0) g/dL Influenza Type A (PCR) Not Detected (Not Detectd) Influenza Type B (PCR) Not Detected (Not Detectd) RSV (PCR) Not Detected (Not Detectd) SARS-CoV-2 (PCR) Detected A (Not Detectd) - EKG Data -: EKG Interpreted by Me (EKG is sinus 78 PA 144 QRS 102 QTC 408) - Radiology Data Radiology results: report reviewed (Chest x-rays negative for acute disease), image reviewed Disposition Clinical Impression: Acute upper respiratory infection, Coronavirus infection Disposition: HOME SELF-CARE Condition: Good Instructions (If sedation given, give patient instructions): Coronavirus Disease 2019 (COVID-19) Prescriptions: dexAMETHasone [Decadron] 6 mg PO TID #14 tablet Is patient prescribed a controlled substance at d/c from ED?: No Referrals: Guevara Bradley MD [Primary Care Provider] - 1-2 days Time of Disposition: 18:25
[2023-06-12 18:27] VITALS: BP 124/78; PULSE 78; RESP 20; TEMP 97.5
[2023-06-12] MEDS ORDERED: DEXAMETHASONE SOD PHOSPHATE 10 MG/ML 1 ML VIAL IVP STA (18:27)
== END 2023-06-12 18:40 | disposition home or self-care (01) ==
LOC: EC 15:46
DX: U07.1 COVID-19 (principal); J06.9 Acute upper respiratory infection, unspecified; I10 Essential (primary) hypertension; J44.89 Other specified chronic obstructive pulmonary disease; E78.5 Hyperlipidemia, unspecified; Z79.51 Long term (current) use of inhaled steroids; Z79.899 Other long term (current) drug therapy; Z87.891 Personal history of nicotine dependence
CPT/HCPCS: 36415; 71046; 80053; 83880; 84484; 85025; 85610; 85730; 87636; 93005; 99284

== ENCOUNTER → 2024-01-08 | Outpatient (CLI) | payer MEDICARE, OTHER ==
--- NOTE | 2024-01-12 15:58 | MM ---
Reason for Exam: Screening (asymptomatic). Last mammogram was performed 3 year(s) and 1 month(s) ago. Patient History: Menarche at age 13. First Full-Term at age 19. Postmenopausal. Risk Values: Nathalie 5 year model risk: 1.3%. NCI Lifetime model risk: 5.3%. Prior Study Comparison: 09/30/2009 Bilateral Screening Mammogram, [facility]. 12/15/2020 Bilateral Screening Mammogram, [facility]. 12/29/2020 Right Diagnostic Mammogram, [facility]. Tissue Density: There are scattered areas of fibroglandular density. Findings: Analyzed By CAD. The pattern is symmetrical. Skin tag is identified on the right breast. There is increasing right axillary adenopathy.No suspicious groups of microcalcifications, spiculated or lobular masses, architectural distortion or other secondary signs of malignancy are mammographically apparent. Overall Assessment: Benign, BI-RAD 2 Management: Screening Mammogram of both breasts in 1 year. A negative mammogram report should not preclude additional follow up of suspicious palpable abnormalities. Patient should continue monthly self breast exam. A clinical breast exam by your physician is recommended on an annual basis and results should be correlated with mammographic findings. Note on Nathalie scores and lifetime risk: 1. A Nathalie score greater than 3% is considered moderate risk. If this is the case, consider specialist referral to assess eligibility for a risk reducing agent. 2. If overall lifetime risk for the development of breast cancer is 20% or higher, the patient may qualify for future screening with alternating mammogram and breast MRI. Electronically signed and approved by: Irwin Jacob D.O. Radiologis
== END | disposition home or self-care (01) ==
LOC: RADMAMWWP 07:15
PROVIDERS: ATTEND Family Medicine
DX: Z12.31 Encounter for screening mammogram for malignant neoplasm of breast (principal); R92.323 Mammographic fibroglandular density, bilateral breasts; Z78.0 Asymptomatic menopausal state
CPT/HCPCS: 77063; 77067

== ENCOUNTER 2024-06-03 10:03 | Emergency (ER) | payer MEDICARE, OTHER ==
[2024-06-03 10:21] VITALS: PULSE 80; RESP 18
--- NOTE | 2024-06-03 10:40 | ED ---
Lower Extremity Injury HPI - General Chief Complaint: Extremity Injury, Lower Stated Complaint: R foot pain Time Seen by Provider: 06/03/24 10:37 Source: patient, family, RN notes reviewed Mode of arrival: wheelchair Limitations: no limitations - History of Present Illness Initial Comments: 63-year-old female presenting with right ankle injury last night. States she woke up in the middle of the night to use the restroom and went to take a step forward, however her foot was asleep, and she fell to the ground, twisting her ankle. Denies hitting her head or losing consciousness. No other injuries. States she is able to bear weight. Reports pain on the lateral aspect of the ankle. - Related Data Home Medications Medication Instructions Recorded Confirmed Albuterol Inhaler [Ventolin Hfa 2 puff INHALATION QID 02/03/18 05/22/23 Inhaler] Albuterol Nebulized [Ventolin 2.5 mg INHALATION QID PRN 05/22/23 05/22/23 Nebulized] Atorvastatin [Lipitor] 20 mg PO HS 05/22/23 05/22/23 Budesonide/Formoterol Fumarate 2 puff INHALATION BID 05/22/23 05/22/23 [Symbicort 160-4.5 Mcg Inhaler] Cholecalciferol [Vitamin D3 (25 50 mcg PO DAILY 05/22/23 05/22/23 Mcg = 1000 Iu)] Gabapentin 300 mg PO TID 05/22/23 05/22/23 Hydroxychloroquine Sulfate 200 mg PO BID 05/22/23 05/22/23 Ipratropium-Albuterol Nebulize 3 ml INHALATION QID PRN 05/22/23 05/22/23 [Duoneb 0.5 mg-3 mg/3 ml Soln] Losartan [Cozaar] 50 mg PO QAM 05/22/23 05/22/23 Montelukast [Singulair] 10 mg PO QAM 05/22/23 05/22/23 buPROPion SR [Wellbutrin SR] 150 mg PO BID 05/22/23 05/22/23 hydroCHLOROthiazide 12.5 mg PO DAILY 05/22/23 05/22/23 Previous Rx's Medication Instructions Recorded dexAMETHasone [Decadron] 6 mg PO TID #14 tablet 06/12/23 Allergies Allergy/AdvReac Type Severity Reaction Status Date / Time No Known Allergies Allergy Verified 06/03/24 10:17 Review of Systems ROS Statement: Those systems with pertinent positive or pertinent negative responses have been documented in the HPI. ROS Other: All systems not noted in ROS Statement are negative. Past Medical History Past Medical History: Asthma, COPD, Hearing Disorder / Deafness, Hyperlipidemia, Hypertension, Pneumonia, Rheumatoid Arthritis (RA) Additional Past Medical History / Comment(s): Hard of hearing. History of Any Multi-Drug Resistant Organisms: None Reported Past Surgical History: Section, Tonsillectomy Past Anesthesia/Blood Transfusion Reactions: No Reported Reaction Past Psychological History: No Psychological Hx Reported Smoking Status: Former smoker Past Alcohol Use History: Occasional Past Drug Use History: None Reported - Past Family History Mother Family Medical History: No Reported History General Exam Limitations: no limitations General appearance: alert, in no apparent distress Head exam: Present: atraumatic, normocephalic, normal inspection Right Lower Leg exam: Present: normal inspection, full ROM. Absent: tenderness, swelling Ankle exam: Present: tenderness (Tenderness over lateral malleolus, no tenderness over medial malleolus), swelling. Absent: normal inspection (Moderate edema of right ankle), full ROM (Limited range of motion due to pain), dislocation Foot/Toe exam: Present: normal inspection, full ROM. Absent: tenderness, swelling, abrasion Neurovascular tendon exam: Present: no vascular compromise. Absent: pulse deficit, abnormal cap refill, sensory deficit Neurological exam: Present: alert, oriented X3 Psychiatric exam: Present: normal affect, normal mood Skin exam: Present: warm, dry, intact, normal color. Absent: rash Course Vital Signs 06/03/24 10:17 Temperature 97.4 F L Pulse Rate 80 Respiratory 18 Rate Blood Pressure 111/71 O2 Sat by Pulse 93 L Oximetry Medical Decision Making - Medical Decision Making Was pt. sent in by a medical professional or institution (, PA, SALES SERVICE MANAGER, urgent care, hospital, or half-way...) When possible be specific @ -No Did you speak to anyone other than the patient for history (EMS, parent, family, police, friend...)? What history was obtained from this source @ -No Did you review nursing and triage notes (agree or disagree)? Why? @ -I reviewed and agree with nursing and triage notes Were old charts reviewed (outside hosp., previous admission, EMS record, old EKG, old radiological studies, urgent care reports/EKG's, half-way records)? Report findings @ -No old charts were reviewed Differential Diagnosis (chest pain, altered mental status, abdominal pain women, abdominal pain men, vaginal bleeding, weakness, fever, dyspnea, syncope, headache, dizziness, GI bleed, back pain, seizure, CVA, palpatations, mental health, musculoskeletal)? @ -Differential Musculoskeletal Muscular strain, contusion, ligament sprain, fracture, arthritis, septic arthritis, bursitis, cellulitis, muscle spasm, nerve compression, DVT, arterial occlusion, herpes zoster, electrolyte abnormality, tumor.... This is not meant to be in all inclusive list EKG interpreted by me (3pts min.). @ -None X-rays interpreted by me (1pt min.). @ -X-ray reveals no acute fracture or dislocation, there is soft tissue swelling lateral ankle CT interpreted by me (1pt min.). @ -None done U/S interpreted by me (1pt. min.). @ -None done What testing was considered but not performed or refused? (CT, X-rays, U/S, labs)? Why? @ -None What meds were considered but not given or refused? Why? @ -None Did you discuss the management of the patient with other professionals (professionals i.e. , PA, SALES SERVICE MANAGER, lab, RT, psych nurse, social work case manager, homoeopath, teacher, fourth officer, case sealer)? Give summary @ -No Was smoking cessation discussed for >3mins.? @ -No Was critical care preformed (if so, how long)? @ -No Were there social determinants of health that impacted care today? How? (Homelessness, low income, unemployed, alcoholism, drug addiction, transportation, low edu. Level, literacy, decrease access to med. care, intermediate, rehab)? @ -No Was there de-escalation of care discussed even if they declined (Discuss DNR or withdrawal of care, Hospice)? DNR status @ -No What co-morbidities impacted this encounter? (DM, HTN, Smoking, COPD, CAD, Cancer, CVA, ARF, Chemo, Hep., AIDS, mental health diagnosis, sleep apnea, morbid obesity)? @ -None Was patient admitted / discharged? Hospital course, mention meds given and route, prescriptions, significant lab abnormalities, going to OR and other pertinent info. @ -Discharge. This is a 63-year-old female presenting with right ankle injury last night. Neurovascularly intact. Able to ambulate. X-ray reveals no acute fracture or dislocation, there is soft tissue swelling at lateral ankle. Results discussed with patient. Discussed diagnosis of right ankle sprain. Nish wrap applied. Appropriate return precautions and supportive care discussed. Case discussed with my ED attending Dr. Cortes. Undiagnosed new problem with uncertain prognosis? @ -No Drug Therapy requiring intensive monitoring for toxicity (Heparin, Nitro, Insulin, Cardizem)? @ -No Were any procedures done? @ -No Diagnosis/symptom? @ -Right ankle sprain Acute, or Chronic, or Acute on Chronic? @ -Acute Uncomplicated (without systemic symptoms) or Complicated (systemic symptoms)? @ -Uncomplicated Side effects of treatment? @ -No Exacerbation, Progression, or Severe Exacerbation? @ -No Poses a threat to life or bodily function? How? (Chest pain, USA, AR, pneumonia, PE, COPD, DKA, ARF, appy, cholecystitis, CVA, Diverticulitis, Homicidal, Suicidal, threat to staff... and all critical care pts) @ -No Disposition Clinical Impression: Right ankle sprain Disposition: HOME SELF-CARE Condition: Stable Instructions (If sedation given, give patient instructions): Ankle Sprain (ED) Additional Instructions: Use ice and elevation of right ankle. Take Tylenol or ibuprofen as needed for pain. Please return to the Emergency Department if symptoms worsen or any other concerns. Is patient prescribed a controlled substance at d/c from ED?: No Referrals: Guevara Bradley MD [Primary Care Provider] - 1-2 days Time of Disposition: 12:25
--- NOTE | 2024-06-03 12:14 | XR ---
EXAMINATION TYPE: XR ankle complete RT DATE OF EXAM: 06/03/2024 11:10 AM COMPARISON: None. CLINICAL INDICATION: Female, 63 years old with history of right ankle injury, TECHNIQUE: 3 view(s) obtained. FINDINGS: Soft tissue swelling is over the lateral malleolus. Mild soft tissue swelling over the medial malleol us. Ankle mortise is intact. No acute displaced fractures evident. Plantar calcaneal heel spur is present . Follow up exams can be performed 7-10 days from acute trauma for continued pain IMPRESSION: 1. Diffuse soft tissue swelling slightly greater along the lateral aspect right ankle [facility] Mesha Forte, , 06/03/2024 12:12 PM
[2024-06-03 12:52] VITALS: BP 120/70; TEMP 98
== END 2024-06-03 12:50 | disposition home or self-care (01) ==
LOC: EC 10:03
DX: S93.401A Sprain of unspecified ligament of right ankle, initial encounter (principal); Z87.891 Personal history of nicotine dependence; X50.1XXA Overexertion from prolonged static or awkward postures, initial encounter
CPT/HCPCS: 99283

== ENCOUNTER → 2024-12-16 | Outpatient (CLI) | payer MEDICARE, OTHER ==
--- NOTE | 2024-12-17 09:02 | CTL ---
EXAMINATION TYPE: CT Low Dose Lung DATE OF EXAM: 12/16/2024 10:36 AM COMPARISON: 02/11/2023 CLINICAL INDICATION: Female, 64 years old with history of Z12.2 ENCNTR SCREEN FOR MALIGNANT NEOPLASM OF RESP Z87.891, lung CA screening, History of tobacco use. Former smoker with 40 pack-year history. TECHNIQUE: Low dose computed tomography scan was performed through the chest at 1 mm thick sections a nd reconstructed images in multiple planes at 1 mm and [address] DLP: 76 mGycm, CT CTDI: 2.29 mGy, Automated exposure control for dose reduction was used. CT DIAGNOSTIC QUALITY: Satisfactory FINDINGS: The heart is upper limits of normal in size without pericardial effusion. Three-vessel coronary arter y calcifications are present and are remarkable for coronary artery disease. Minimal atherosclerotic calcifications within the aorta within the chart was a branching anatomy. No progressive lymphadenopathy by CT size criteria. Borderline to mildly enlarged caliber main right and left pulmonary arteries up to 2.7 cm suggesting underlying pulmonary artery hypertension. Moderate diffuse bronchial wall thickening. Mild emphysematous change. Scattered strandy atelectasis or scarring in the lower lungs. A few 5 mm smaller pulmonary nodules remain unchanged. No new or suspicious pulmonary nodule identifi ed. Tiny hiatal hernia. Otherwise, visualized upper abdomen shows no gross abnormality. Bones: Mild degenerative disc disease lower thoracic spine. IMPRESSION: 1. LungRADS 2, benign. Stable 5 mm and smaller bilateral pulmonary nodules. 2. COPD with mild emphysema and possible pulmonary arterial hypertension. Similar prominent strandy s carring in the lower lungs. 3. Three-vessel coronary artery calcifications and tiny hiatal hernia. CT LUNG RAD AND CT CHEST RECOMMENDATION: Lung-Rad 2 Benign Appearance or Behavior: Continue annual sc reening with LDCT in 12 months. S Modifier (other clinically significant findings): None [facility], Workstation: [email or web address], 12/17/2024 8:59 AM
== END | disposition home or self-care (01) ==
LOC: RADCTMAIN 09:37
PROVIDERS: ATTEND Internal Medicine Critical Care Medicine
DX: Z12.2 Encounter for screening for malignant neoplasm of respiratory organs (principal); J43.9 Emphysema, unspecified; I25.10 Atherosclerotic heart disease of native coronary artery without angina pectoris; R91.8 Other nonspecific abnormal finding of lung field; K44.9 Diaphragmatic hernia without obstruction or gangrene; Z87.891 Personal history of nicotine dependence
CPT/HCPCS: 71271